=== PATIENT | female | born 1965 | race Caucasian/White ===

== ENCOUNTER 2022-01-28 11:04 | Outpatient (CLI) | payer BC, SELFPAY ==
[2022-01-28 11:23] LABS: Basophils Absolute Auto 0.1 K/mm3 (0.0-0.1); Basophils Percent Auto 0.7 % (0.2-1.2); Eosinophils Absolute Auto 0.2 K/mm3 (0-0.3); Eosinophils Percent Auto 2.5 % (0-4.4); Hemoglobin 11.3 g/dL (12.0-15.0); Immature Granulocyte Absolute 0.05 K/mm3 (0.00-0.031); Immature Granulocyte Percent A 0.6 % (0-0.5); Lymphocytes Absolute Auto 2.42 K/mm3 (0.9-3.2); Lymphocytes Percent Auto 27.3 % (18.3-44.2); Mean Corpuscular HGB Conc 32.3 g/dl (32-36); Mean Corpuscular Hemoglobin 27.2 pg (26-34); Mean Corpuscular Volume 84.3 fl (80-100); Mean Platelet Volume 9.4 fl (7.4-10.4); Monocytes Absolute Auto 0.6 K/mm3 (0.1-0.6); Monocytes Percent Auto 6.8 % (2.6-8.5); Neutrophils Absolute Auto 5.5 K/mm3 (1.3-6.7); Neutrophils Percent Auto 62.1 % (45.5-73.1); Platelet Count Result 230 k/mm3 (150-375); Red Blood Count 4.15 M/mm3 (4.2-5.4); White Blood Count 8.9 K/mm3 (4.5-10.0)
[2022-01-28 11:51] LABS: Alanine Aminotransferase 42 U/L (4-35); Albumin Level 4.4 g/dL (3.5-5.1); Alkaline Phosphatase 68 U/L (38-126); Amylase 107 U/L (30-110); Anion Gap 9 mmol/L (8-16); Aspartate Amino Transferase 54 U/L (14-36); Bilirubin,Total 0.5 mg/dL (0.2-1.3); Blood Urea Nitrogen 18 mg/dL (7-17); Calcium 9.8 mg/dL (8.4-10.2); Carbon Dioxide 25 mmol/L (22-30); Chloride 103 mmol/L (98-107); Estimated Glomerular Filt Rate > 60; Glucose 111 mg/dL (65-110); Lipase 412 U/L (23-300); Potassium 4.6 mmol/L (3.4-5.0); Sodium 137 mmol/L (137-145)
== END 2022-01-28 11:05 | disposition home or self-care (01) ==
LOC: ANHLAB 11:07
PROVIDERS: PCP Family Medicine; Visit Provider Surgery
DX: K82.8 Other specified diseases of gallbladder (principal)
CPT/HCPCS: 36415; 80053; 82150; 83690; 85025

== ENCOUNTER 2022-07-07 08:25 | Outpatient (CLI) | payer BC, SELFPAY ==
--- NOTE | ~2022-07-07 | XR_ITS ---
EXAMINATION: XR ankle RT min 3V INDICATION: Right ankle and heel pain TECHNIQUE: Four views of the right ankle are obtained. COMPARISON: None available FINDINGS: Bone alignment is normal. There is no fracture. There are posterior and plantar calcaneal e nthesophytes. The soft tissues are unremarkable. There is mild osteoarthritis of the ankle IMPRESSION: 1. Posterior and plantar calcaneal enthesophytes without acute osseous abnormality. Reviewed, dictated and finalized at location A. IMPRESSION: 1. Posterior and plantar calcaneal enthesophytes without acute osseous abnormal ity.
== END 2022-07-07 08:26 | disposition home or self-care (01) ==
LOC: CHSIMG 08:28
PROVIDERS: PCP Family Medicine; Visit Provider Orthopaedic Surgery
DX: M25.571 Pain in right ankle and joints of right foot (principal)
CPT/HCPCS: 73610

== ENCOUNTER 2022-07-09 16:56 | Outpatient (RCR) | payer BC, SELFPAY ==
--- NOTE | 2022-07-09 21:50 | PTOPEVAL1 ---
Assessment and note entered by JT [employer], PT Evaluation Information Assessment Status Evaluation Diagnosis R santos tendonitis Onset 07/07/22 Subjective Information patient reports she has a knot on her R heel. she reports she has the most pain with walking and with steps. she reports she has pain during the full gait cycle. she reports she has the most pain after a rest and then trying to get back up and walk again. 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 she reports she is walking about 5 miles a day. patient reports she does have some relief with KT tape. Reported Pain Level Pain Score 6: Self Report Assessment PT Clinical Summary mrs. pascual is a 56 yo woman who presents to skilled PT services for evaluation and treatment of R posterior calcaneal pain. he signs and symptoms align with her referring diagnosis of achilles tedonitis. she would do well to attend skilled PT to improve her objective/functional deficits, decrease pain, and return to her prior level functional activity performance/quality of life. Plan of Care Interventions Check Out for Orthotic/Pr,Gait Training,Hot Pack/ Cold Pack,Manual Therapy,Neuro Re-education, Patient/Caregiver Educati,Therapeutic Activities, Therapeutic Exercise,Ultrasound PT Services Indicated Yes Treatment Frequency and 3x weekly for 9 visits Duration These treatments will address the objective and functional deficits as defined above. The patient will be advanced safely and appropriately in order for the patient to progress towards his/her prior level of function. Additional exercises will be introduced and as well as a comprehensive home exercise program upon discharge, if needed, ?to ensure carryover of functional gains achieved in the clinic. This treatment plan has been reviewed and agreement upon by the patient.
== END 2022-08-01 16:37 | disposition home or self-care (01) ==
LOC: CHSPT 16:56
PROVIDERS: Visit Provider Orthopaedic Surgery
DX: M76.61 Achilles tendinitis, right leg (principal)
CPT/HCPCS: 97035; 97110; 97140; 97161